=== PATIENT | female | born 1950 | race Caucasian/White ===

== ENCOUNTER 2020-12-29 10:49 | Outpatient (CLI) | payer MEDICARE, OTHER | END 2020-12-29 10:50 | disposition home or self-care (01) | LOC: CSHCT 10:49 | PROVIDERS: ATTEND Internal Medicine Cardiovascular Disease | DX: I71.2 Thoracic aortic aneurysm, without rupture (principal); R91.8 Other nonspecific abnormal finding of lung field; K86.9 Disease of pancreas, unspecified | CPT/HCPCS: 71275 ==

== ENCOUNTER 2022-11-24 05:32 | Day surgery (SDC) | payer MEDICARE, OTHER ==
[2022-11-22 13:49] VITALS: BMI 27.6
[2022-11-24] MEDS ORDERED: Bupivacaine HCl 0.5%/Epinephrine 1:200,000/PF 30 ml Vial ONE (06:36)
[2022-11-24] MEDS ORDERED: CEFAZOLIN 2 GM VIAL ONE (06:48)
[2022-11-24] MEDS ORDERED: PROPOFOL 20 ML ONE (07:04)
[2022-11-24] MEDS ORDERED: Fentanyl 100 MCG/2 ML VIAL ONE (07:04)
[2022-11-24] MEDS ORDERED: Lidocaine 1% PF 5 ML VIAL ONE (07:04)
[2022-11-24] MEDS ORDERED: Midazolam HCl 2 mg/2 ml Vial ONE (07:04)
== END 2022-11-24 08:25 | disposition home or self-care (01) ==
LOC: CSHSDC 05:32
PROVIDERS: ATTEND Surgery
PROC: 0JH60WZ Insertion of Totally Implantable Vascular Access Device into Chest Subcutaneous Tissue and Fascia, Open Approach (ICD-10-PCS; principal; 2022-11-24)
PROC: 05HM33Z Insertion of Infusion Device into Right Internal Jugular Vein, Percutaneous Approach (ICD-10-PCS; 2022-11-24)
PROC: B513ZZA Fluoroscopy of Right Jugular Veins, Guidance (ICD-10-PCS; 2022-11-24)
DX: C50.919 Malignant neoplasm of unspecified site of unspecified female breast (principal); I10 Essential (primary) hypertension; J30.2 Other seasonal allergic rhinitis; I35.0 Nonrheumatic aortic (valve) stenosis; Z79.899 Other long term (current) drug therapy; Z90.13 Acquired absence of bilateral breasts and nipples; Z98.890 Other specified postprocedural states
CPT/HCPCS: 36561; 71045; C1788; J1642; J2250; J2704; J3010

== ENCOUNTER 2023-12-07 10:19 | Outpatient (CLI) | payer MEDICARE, OTHER | END 2023-12-07 10:20 | disposition home or self-care (01) | LOC: CSHRAD 10:19 | PROVIDERS: ATTEND Family Medicine | DX: R13.10 Dysphagia, unspecified (principal); K22.4 Dyskinesia of esophagus; K44.9 Diaphragmatic hernia without obstruction or gangrene | CPT/HCPCS: 74220 ==

== ENCOUNTER 2024-07-31 10:22 | Outpatient (CLI) | payer MEDICARE, OTHER | END 2024-07-31 10:23 | disposition home or self-care (01) | LOC: CSHMAMMO 10:22 | PROVIDERS: ATTEND Internal Medicine Hematology & Oncology | DX: M85.851 Other specified disorders of bone density and structure, right thigh (principal); M85.852 Other specified disorders of bone density and structure, left thigh | CPT/HCPCS: 77080 ==

== ENCOUNTER 2024-08-15 10:34 | Outpatient (CLI) | payer MEDICARE, OTHER | END 2024-08-15 10:35 | disposition home or self-care (01) | LOC: CSHCT 10:34 | PROVIDERS: ATTEND Internal Medicine Hematology & Oncology | DX: C50.412 Malignant neoplasm of upper-outer quadrant of left female breast (principal); C78.2 Secondary malignant neoplasm of pleura; R91.8 Other nonspecific abnormal finding of lung field; R59.0 Localized enlarged lymph nodes; I71.21 Aneurysm of the ascending aorta, without rupture | CPT/HCPCS: 71260; 74177; 82565 ==

== ENCOUNTER 2025-05-09 09:43 | Outpatient (CLI) | payer MEDICARE, OTHER ==
[2025-05-09 11:15] LABS: Estimated GFR - POC 90.0
== END 2025-05-09 09:44 | disposition home or self-care (01) ==
LOC: CSHCT 09:43
PROVIDERS: ATTEND Internal Medicine Cardiovascular Disease
DX: I42.9 Cardiomyopathy, unspecified (principal); K86.89 Other specified diseases of pancreas; K86.2 Cyst of pancreas; K76.9 Liver disease, unspecified; I71.21 Aneurysm of the ascending aorta, without rupture; R91.8 Other nonspecific abnormal finding of lung field; K44.9 Diaphragmatic hernia without obstruction or gangrene; E27.8 Other specified disorders of adrenal gland
CPT/HCPCS: 71275; 82565